=== PATIENT | female | born 2005 | race Caucasian/White ===

== ENCOUNTER → 2025-09-22 08:51 | Outpatient (CLI) | payer OTHER, SELFPAY ==
--- NOTE | 2025-09-22 08:57 | DI.MRI.S_ITS ---
PROCEDURE: MR KNEE RT WO CON INDICATIONS: Effusion, right knee TECHNIQUE: Noncontrast sagittal PD fast spin echo and T2 fast spin echo with fat saturation, sagittal 3-D FLASH with fat saturation; coronal T1 spin echo and PD fast spin echo with fat saturation, and axial PD fast spin echo with fat saturation through the knee. COMPARISON: None. FINDINGS: Image quality: Diagnostic. Menisci: The medial meniscus is intact. The lateral meniscus is intact. Ligaments: The ACL is intact. The PCL is intact. The MCL is intact. The LCL is intact. The posterolateral supporting structures are intact. 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 The TT TG is 18 mm. The Insall-Salvati ratio is 1.28, the Trini Jaren ratio is 1.11. Quadriceps tendon is intact. The patellar tendon is intact. The patellar retinacula are intact. Osseous Structures: There is no fracture or dislocation. No suspicious marrow replacing process. There is no joint effusion. Hoffa's fat pad is unremarkable. Articular Cartilage: Patellofemoral compartment: Cartilage of the patellofemoral compartment is intact. Medial compartment: Cartilage of the medial tibiofemoral compartment is intact. Lateral compartment: Cartilage of the lateral tibiofemoral compartment is intact. Other: The visualized muscles and tendons appear normal for age. No Robles's cyst. Normal neurovascular signal. Subcutaneous soft tissues appear normal. IMPRESSION: Findings suggestive of patellofemoral maltracking secondary to solid femoral trochlea and increased lateral patellar tilt, correlate with physical exam findings. No meniscal injury or focal ligamentous disruption to correlate with reported effusion. Intact articular cartilage. Dictated by: Phuc Zuniga M.D. on 09/22/2025 at 14:00 Approved by: Phuc Zuniga M.D. on 09/22/2025 at 14:04
== END ==
LOC: MRI 08:56
PROVIDERS: PCP Family Medicine; Referring Provider Family Medicine; Visit Provider Family Medicine
DX: M25.561 Pain in right knee (principal); M25.461 Effusion, right knee
CPT/HCPCS: 73721